=== PATIENT | female | born 2000 | race Hispanic/Latino ===

== ENCOUNTER 2020-03-14 01:39 | Emergency (ER) | payer OTHER ==
[~2020-03-14] VITALS: Ht 154.9 cm; Wt 75.3 kg
[2020-03-14 03:59] LABS: BASO % 0.6 % (0.0-1.0); EOS % 0.4 % (0.0-3.0); HEMATOCRIT 38.2 % (36.0-47.0); HEMOGLOBIN 12.5 g/dl (12.0-15.5); LYMPH # 2.2 10^3/uL (1.5-5.0); LYMPH % 32.4 % (24.0-44.0); MEAN CORPUSCULAR HEMOGLOBIN 27.6 pg (27.0-33.0); MEAN CORPUSCULAR HGB CONC 32.7 g/dl (32.0-36.5); MEAN CORPUSCULAR VOLUME 84.3 fl (80.0-96.0); MONO # 0.3 10^3/uL (0.0-0.8); MONO % 4.6 % (0.0-5.0); NEUTROPHILS # 4.1 10^3/uL (1.5-8.5); NEUTROPHILS % 61.6 % (36.0-66.0); PLATELET COUNT, AUTOMATED 213 10^3/uL (150-450); RED BLOOD COUNT 4.53 10^6/uL (4.00-5.40); WHITE BLOOD COUNT 6.7 10^3/uL (4.0-10.0)
[2020-03-14 04:32] LABS: ALBUMIN 3.9 GM/DL (3.2-5.2); ALT/SGPT 28 U/L (12-78); BILIRUBIN,DIRECT < 0.1 MG/DL (0.0-0.2); BILIRUBIN,TOTAL 0.2 MG/DL (0.2-1.0); BLOOD UREA NITROGEN 14 MG/DL (7-18); CALCIUM LEVEL 8.5 MG/DL (8.5-10.1); CARBON DIOXIDE LEVEL 21 MEQ/L (21-32); CHLORIDE LEVEL 107 MEQ/L (98-107); CREATININE FOR GFR 0.47 MG/DL (0.55-1.30); GLUCOSE, FASTING 76 MG/DL (70-100); LIPASE 63 U/L (73-393); POTASSIUM SERUM 3.8 MEQ/L (3.5-5.1); SODIUM LEVEL 141 MEQ/L (136-145); TOTAL PROTEIN 7.5 GM/DL (6.4-8.2)
[2020-03-14] MEDS ORDERED: NS 1,000 ML IV ONE (07:00)
--- NOTE | 2020-03-14 07:02 | REPVR ---
PROCEDURE INFORMATION: Exam: US Pelvis Complete, Transabdominal and US Duplex Artery and Vein, Ovaries, Complete Exam date and time: 03/14/2020 6:31 AM Age: 19 years old Clinical indication: Pelvic pain; Additional info: R sided pelvic pain, cramping TECHNIQUE: Imaging protocol: Real-time transabdominal pelvic ultrasound with image documentation. Real-time duplex ultrasound scan of the arterial and venous flow of the ovaries with B-mode, color Doppler flow and spectral waveform analysis. Complete Pelvis, Complete Duplex. COMPARISON: No relevant prior studies available. FINDINGS: Uterus/cervix: Uterus measures 12.6 x 4 x 7 cm. Endometrial stripe is 1.3 cm. Right adnexa: Right ovary measures 3 x 1.7 x 3.5 cm. Normal waveforms. Left adnexa: Left ovary measures 3 x 1.8 x 3.5 cm. Normal waveforms. Free fluid: None. Bladder: Normal. IMPRESSION: No acute findings. No evidence of ovarian torsion bilaterally. Electronically signed by: Corby Islas On 03/14/2020 07:01:54 AM
[2020-03-14] MEDS ORDERED: DOXY100C37 PO (07:57)
[2020-03-14] MEDS ORDERED: DOXYCYCLINE HYCLATE 100MG TABLET PO ONE (08:00)
[2020-03-14] MEDS ORDERED: LIDOCAINE 1% SDV 5ML VIAL DILUENT ONE (08:00)
[2020-03-14] MEDS ORDERED: cefTRIAXone 500MG VIAL (J0696 PER 250MG) IM ONE (08:00)
[2020-03-14 08:02] LABS: CHLAMYDIA DNA AMPLIFICATION NEGATIVE (NEGATIVE); GC DNA AMPLIFICATION NEGATIVE (NEGATIVE)
[2020-03-14 08:15] VITALS: BP 113/58
== END 2020-03-14 08:26 | disposition home or self-care (01) ==
LOC: M ED 01:39
DX: N89.8 Other specified noninflammatory disorders of vagina (principal); R10.2 Pelvic and perineal pain; Z11.3 Encounter for screening for infections with a predominantly sexual mode of transmission; Z87.448 Personal history of other diseases of urinary system; Z87.42 Personal history of other diseases of the female genital tract
CPT/HCPCS: 36415; 76856; 80048; 80076; 81001; 83690; 84702; 85025; 87210; 87661; 93041; 93976; 96360; 96372; 99285; J0696

== ENCOUNTER 2021-04-15 10:08 | Outpatient (CLI) | payer OTHER ==
[~2021-04-15] VITALS: Ht 157.5 cm; Wt 79.3 kg
[~2021-04-15 10:08] MED LIST: DOXY-443 PO
[2021-04-15 10:22] VITALS: BP 121/57
[2021-04-15] MEDS ORDERED: LR 1,000 ML IV ONE (10:45)
[2021-04-15] MEDS ORDERED: HOME MED LIST COMPLETE! XX SCH (10:45)
[2021-04-15] MEDS ORDERED: PRENTAB9 PO (10:45)
[2021-04-15] MEDS ORDERED: ONDANSETRON 4MG/2ML VIAL IV ONE (11:20)
[2021-04-15 11:36] LABS: HEMATOCRIT 39.3 % (36.0-47.0); HEMOGLOBIN 13.3 g/dl (12.0-15.5); MEAN CORPUSCULAR HEMOGLOBIN 28.9 pg (27.0-33.0); MEAN CORPUSCULAR HGB CONC 33.8 g/dl (32.0-36.5); MEAN CORPUSCULAR VOLUME 85.2 fl (80.0-96.0); PLATELET COUNT, AUTOMATED 119 10^3/uL (150-450); RED BLOOD COUNT 4.61 10^6/uL (4.00-5.40); WHITE BLOOD COUNT 7.5 10^3/uL (4.0-10.0)
[2021-04-15 11:54] LABS: ALBUMIN 2.8 GM/DL (3.2-5.2); ALT/SGPT 23 U/L (12-78); BILIRUBIN,TOTAL 0.7 MG/DL (0.2-1.0); BLOOD UREA NITROGEN 13 MG/DL (7-18); CALCIUM LEVEL 8.1 MG/DL (8.5-10.1); CARBON DIOXIDE LEVEL 21 MEQ/L (21-32); CHLORIDE LEVEL 107 MEQ/L (98-107); CREATININE FOR GFR 0.37 MG/DL (0.55-1.30); GLOMERULAR FILTRATION RATE > 60.0 (>60); GLUCOSE, FASTING 73 MG/DL (70-100); POTASSIUM SERUM 3.7 MEQ/L (3.5-5.1); SODIUM LEVEL 136 MEQ/L (136-145); TOTAL PROTEIN 6.4 GM/DL (6.4-8.2)
== END 2021-04-15 12:00 | disposition home or self-care (01) ==
LOC: M LDO 10:08
PROVIDERS: ATTEND Advanced Practice Midwife
DX: O21.2 Late vomiting of pregnancy (principal); Z3A.34 34 weeks gestation of pregnancy; O26.893 Other specified pregnancy related conditions, third trimester; R19.7 Diarrhea, unspecified
CPT/HCPCS: 80053; 85027; 96374; J2405

== ENCOUNTER 2021-05-18 07:19 | Inpatient (IN) | payer OTHER ==
[~2021-05-18] VITALS: Ht 154.9 cm; Wt 84.1 kg
[2021-05-18] VITALS (12 sets, daily range): BP systolic 97–141; BP diastolic 50–81
[2021-05-18] MEDS: LR 1,000 ML IV SCH ×2 (07:00→16:26)
[~2021-05-18 07:19] MED LIST changes: +PRENTAB9 PO
[2021-05-18] MEDS ORDERED: ONDANSETRON 4MG/2ML VIAL As Ordered ONE (07:20)
[2021-05-18] MEDS ORDERED: OXYTOCIN INJ 10 UNITS/ML VIAL (J2590) As Ordered ONE (07:20)
[2021-05-18] MEDS ORDERED: dexameTHASONE 4 MG/ML 1ML VIAL (J1100 PER 1MG) As Ordered ONE (07:20)
[2021-05-18] MEDS ORDERED: KETOROLAC 60MG 2ML VIAL As Ordered ONE (07:20)
[2021-05-18] MEDS ORDERED: MORPHINE PRES-FREE INJ 10 MG/10 ML VIAL As Ordered ONE (07:21)
[2021-05-18] MEDS ORDERED: fentaNYL 100 MCG/2 ML INJECTION As Ordered ONE (07:21)
[2021-05-18] MEDS ORDERED: HOME MED LIST COMPLETE! XX SCH (07:50)
[2021-05-18] MEDS ORDERED: ceFAZolin SOD 2 GM in IV 1 EA IV ONE (08:00)
[2021-05-18] MEDS ORDERED: BICITRA 30ML SOLN UDC PO ONE (08:00)
[2021-05-18] MEDS ORDERED: LR 1,000 ML IV SCH (08:00)
[2021-05-18] MEDS ORDERED: LR 500 ML IV ONE (08:00)
[2021-05-18 08:43] LABS: HEMATOCRIT 36.4 % (36.0-47.0); HEMOGLOBIN 12.3 g/dl (12.0-15.5); MEAN CORPUSCULAR HEMOGLOBIN 28.5 pg (27.0-33.0); MEAN CORPUSCULAR HGB CONC 33.8 g/dl (32.0-36.5); MEAN CORPUSCULAR VOLUME 84.3 fl (80.0-96.0); PLATELET COUNT, AUTOMATED 136 10^3/uL (150-450); RED BLOOD COUNT 4.32 10^6/uL (4.00-5.40); WHITE BLOOD COUNT 8.2 10^3/uL (4.0-10.0)
[2021-05-18] MEDS: PRENATAL VITAMINS CHEWABLE TABLET PO SCH (09:00)
[2021-05-18] MEDS ORDERED: METOCLOPRAMIDE INJ 10MG/2ML VIAL (J2765 PER 1) IV PRN (09:47)
[2021-05-18] MEDS ORDERED: diphenhydrAMINE 50MG/ML VIAL (J1200) IV PRN (09:47)
[2021-05-18] MEDS ORDERED: NALOXONE INJ 0.4MG/1ML VIAL (J2310 PER 1MG) IV PRN ×2 (09:47)
[2021-05-18] MEDS ORDERED: NALBUPHINE HCL 10 MG/ML AMP (J2300) IV PRN ×2 (09:47→11:20)
[2021-05-18] MEDS ORDERED: ONDANSETRON 4MG/2ML VIAL IV PRN ×3 (09:47→11:20)
[2021-05-18] MEDS ORDERED: PHENYLephrine 500MCG 5ML (100MCG/ML) SYRINGE As Ordered ONE (10:12)
[2021-05-18 10:37] LABS: CORD GAS ABE A -5.9; CORD GAS HCO3 A 23.9 MEQ/L; CORD GAS O2 SAT A 20.1 %; CORD GAS PCO2 A 67.9 mmHg; CORD GAS PH A 7.165 UNITS; CORD GAS PO2 A 13.7 mmHg; CORD GAS SBC A 18.1 MEQ/L
[2021-05-18 10:38] LABS: CORD GAS ABE V -6.6; CORD GAS HCO3 V 20.4 MEQ/L; CORD GAS O2 SAT V 83.7 %; CORD GAS PCO2 V 45.9 mmHg; CORD GAS PH V 7.265 UNITS; CORD GAS PO2 V 42.6 mmHg; CORD GAS SBC V 18.9 MEQ/L; CORD GAS TCO2 V 21.8 MEQ/L
[2021-05-18] MEDS ORDERED: oxyCODONE 5MG TAB PO PRN ×3 (11:05→11:20)
[2021-05-18] MEDS ORDERED: RHOGAM 300 MCG (1500 IU) INJ (J2790) IM SCH (11:05)
[2021-05-18] MEDS ORDERED: OXYTOCIN DRIP 30 UNITS in IV 1 EA IV SCH ×4 (11:05)
[2021-05-18] MEDS ORDERED: PROMETHAZINE 25 MG TAB PO PRN (11:05)
[2021-05-18] MEDS ORDERED: SIMETHICONE 80MG CHEW TAB PO PRN (11:05)
[2021-05-18] MEDS: ACETAMINOPHEN 500 MG TAB PO SCH ×3 (11:05→23:09)
[2021-05-18] MEDS ORDERED: MEASLES,MUMPS,RUBELLA VACCINE INJ (MMR-II) (90707) SC SCH (11:05)
[2021-05-18] MEDS ORDERED: HYDROMORPHONE HCL 0.5 MG/ 0.5 ML SYRINGE (J1170 PER 1) IV PRN (11:20)
[2021-05-18] MEDS ORDERED: MEPERIDINE INJ 25 MG/ML VIAL (J2175) IV PRN (11:20)
[2021-05-18] MEDS ORDERED: fentaNYL 100 MCG/2 ML INJECTION IV PRN (11:20)
[2021-05-18] MEDS ORDERED: OXYTOCIN 30 UNITS IN 0.9% NaCl 500ML IV BAG (J2590) As Ordered ONE ×2 (11:34→11:54)
[2021-05-18] MEDS ORDERED: KETOROLAC 30 MG/ML 1ML VIAL IV SCH (13:00)
[2021-05-18] MEDS ORDERED: IBUPROFEN 800 MG TAB PO SCH (13:00)
[2021-05-18] MEDS: KETOROLAC 30 MG/ML 1ML VIAL IV SCH ×2 (16:35→23:08)
[2021-05-18] MEDS: DOCUSATE SODIUM 100MG CAPSULE PO SCH (21:17)
[2021-05-19 02:07] VITALS: BP 120/56
[2021-05-19] MEDS: KETOROLAC 30 MG/ML 1ML VIAL IV SCH (05:09)
[2021-05-19] MEDS: ACETAMINOPHEN 500 MG TAB PO SCH ×4 (05:09→23:30)
[2021-05-19 06:12] VITALS: BP 118/57
[2021-05-19] MEDS: DOCUSATE SODIUM 100MG CAPSULE PO SCH ×2 (08:05→21:21)
[2021-05-19] MEDS: PRENATAL VITAMINS CHEWABLE TABLET PO SCH (08:05)
[2021-05-19 08:24] LABS: HEMATOCRIT 31.1 % (36.0-47.0); HEMOGLOBIN 10.4 g/dl (12.0-15.5); MEAN CORPUSCULAR HEMOGLOBIN 28.3 pg (27.0-33.0); MEAN CORPUSCULAR HGB CONC 33.4 g/dl (32.0-36.5); MEAN CORPUSCULAR VOLUME 84.7 fl (80.0-96.0); PLATELET COUNT, AUTOMATED 107 10^3/uL (150-450); RED BLOOD COUNT 3.67 10^6/uL (4.00-5.40); WHITE BLOOD COUNT 10.8 10^3/uL (4.0-10.0)
[2021-05-19] MEDS ORDERED: PRENATAL VITAMINS CHEWABLE TABLET PO SCH (09:00)
[2021-05-19] MEDS ORDERED: IBUPROFEN 800 MG TAB PO SCH (09:00)
[2021-05-19 10:06] VITALS: BP 112/56
[2021-05-19] MEDS: IBUPROFEN 800 MG TAB PO SCH ×2 (12:35→21:21)
[2021-05-19 14:00] VITALS: BP 120/59
[2021-05-19 18:34] VITALS: BP 107/57
[2021-05-19 21:51] VITALS: BP 118/56
[2021-05-20 02:06] VITALS: BP 131/75
[2021-05-20] MEDS: IBUPROFEN 800 MG TAB PO SCH (04:59)
[2021-05-20] MEDS: ACETAMINOPHEN 500 MG TAB PO SCH (05:00)
[2021-05-20 06:02] VITALS: BP 125/62
[2021-05-20] MEDS ORDERED: ACET-683 PO (06:59)
[2021-05-20] MEDS ORDERED: IBUP80TA PO (06:59)
[2021-05-20] MEDS ORDERED: OXYC-517 PO (06:59)
[2021-05-20] MEDS: DOCUSATE SODIUM 100MG CAPSULE PO SCH (08:14)
[2021-05-20] MEDS: PRENATAL VITAMINS CHEWABLE TABLET PO SCH (08:14)
[2021-05-20 09:58] VITALS: BP 121/58
== END 2021-05-20 12:45 | disposition home or self-care (01) | DRG 773 ==
LOC: M LDI 07:19 → M OBS 12:39
PROVIDERS: ADMIT Obstetrics & Gynecology; ATTEND Obstetrics & Gynecology
PROC: 10D00Z1 Extraction of Products of Conception, Low, Open Approach (ICD-10-PCS; principal; 2021-05-18 09:30)
DX: O34.211 Maternal care for low transverse scar from previous cesarean delivery (principal); Z3A.39 39 weeks gestation of pregnancy; Z37.0 Single live birth